=== PATIENT | male | born 1930 | race Caucasian/White ===

== ENCOUNTER → 2017-06-27 | Outpatient (CLI) | payer MEDICARE, OTHER ==
[~2017-06-27] MED LIST: AMIODARONE HCL100 MG PO; ASPIRIN325 MG PO; FLOMAX0.4 MG PO; IMDUR30 MG PO; K-TAB 10MEQ10 MEQ PO; LASIX40 MG PO; LEVOTHROID (SY50 MCG PO; LIPITOR80 MG PO; NORVASC5 MG PO; RANEXA ER500 MG PO
[2017-06-27 13:45] LABS: ALBUMIN 3.6 gm/dL (3.5-5.0); TOTAL BILIRUBIN 0.5 mg/dL (0.0-1.5)
== END ==
LOC: LCNC 13:09
PROVIDERS: Internal Medicine Interventional Cardiology
DX: Z79.899 Other long term (current) drug therapy (principal)

== ENCOUNTER 2017-07-05 15:12 | Observation (INO) | payer MEDICARE, OTHER ==
[~2017-07-05] VITALS: Ht 180.3 cm; Wt 82.7 kg
--- NOTE | ~2017-07-05 | ER ---
PATIENT'S NAME: SAMUEL FOSS [facility] AGE: 86 Y [address] ROOM: [place] [address] LOCATION: GPCU ADMIT DATE: 07/05/2017 ER/Outpatient Report DISCHARGE DATE: FAMILY PHYSICIAN: Carlos Porter MD ATTENDING PHYSICIAN: Carlos Porter Time of Arrival: 1512 hours. Time Seen: 1512 hours. IDENTIFICATION: An 86-year-old male. CHIEF COMPLAINT: Chest pain. HISTORY OF PRESENT ILLNESS: The patient is an 86-year-old male from [place], [place], who woke up and had some left-sided chest pain and shortness of breath. No radiation of the pain. No nausea or vomiting. The stone chimney mason picked him up in [place], said that he was diaphoretic. The patient has a history of coronary artery disease, had bypass surgery in 1988, stents placed in [address] Lomas is his registered radiographer. He denied a recent stress test. I do see that he had a stress test in January 2016 showing a small area of decreased isotope in the anterolateral wall and a small-sized area of decreased isotope in the inferoseptal wall. On arrival here to the emergency room, the patient reports his pain at 5/10 or 6/10, it is better than it was initially. We did give him sublingual nitroglycerin with improvement of his pain, so he was placed on nitroglycerin drip. ALLERGIES: NO KNOWN DRUG ALLERGIES. CURRENT MEDICATIONS: 1. Isosorbide 30 mg 1/2 tablet daily. 2. KCl 10 mEq b.i.d. 3. Furosemide 40 mg daily. 4. Amlodipine 10 mg half a tablet b.i.d. 5. Aspirin 325 mg daily. 6. Amiodarone 200 mg half a tab at noon. 7. Tamsulosin 0.4 mg at h.s. 8. Atorvastatin 80 mg daily. 9. Levothyroxine 50 mcg daily. MEDICAL PROBLEMS: Coronary artery disease; hypertension; history of atrial fibrillation; GI PATIENT'S NAME: PIPO [facility] AGE: 86 Y [address] ROOM: [place] [address] LOCATION: GPCU ADMIT DATE: 07/05/2017 ER/Outpatient Report DISCHARGE DATE: FAMILY PHYSICIAN: Carlos Porter MD ATTENDING PHYSICIAN: Carlos Porter bleed while on chronic anticoagulation, so his Coumadin has been stopped; chronic kidney disease; and hyperlipidemia. PRIOR SURGERY: Colonoscopy, 2009; CABG in 1988; stents 1998, 1999, 2003; hernia repair in 2003 and 1991; carotid endarterectomy in 1998; and cataract surgery, 1997. SOCIAL HISTORY: The patient is retired. Lives alone in [place]. Tobacco use, quit 40+ years ago. Alcohol use, denies. Drug use, denies. FAMILY HISTORY: Father at age 76 of CHF. Mother age 94. One brother at age 54 of heart disease. ALLERGIES: TO CONTRAST DYE. REVIEW OF SYSTEMS: All systems reviewed and negative other than what is noted in the HPI. PHYSICAL EXAMINATION: VITAL SIGNS: 5 feet 11 inches, weight 85.3 kg. Blood pressure 198/93, pulse 84, respirations 18, temperature 97.8, and saturations 96% on room air. GENERAL: An 86-year-old male, in no acute distress. A little bit diaphoretic. HEENT: Unremarkable. LUNGS: Clear to auscultation. HEART: Regular rate and rhythm. No murmur, rub, or gallop. ABDOMEN: Bowel sounds present. Soft, nondistended, nontender. SKIN: Slightly diaphoretic. NEUROLOGIC: The patient is alert and oriented x4. Cranial nerves 2 through 12 grossly intact. Motor strength 5/5 throughout. Sensation is intact to light touch. The patient has some slight bilateral lower extremity edema. No calf tenderness. EMERGENCY ROOM COURSE: Saline lock was initiated. The patient already took 325 mg aspirin at home. He was given nitroglycerin tablet with improvement, so nitroglycerin drip was initiated, but then he became bradycardic, heart rate in the 55 range, so we did discontinue his nitroglycerin drip. EKG sinus rhythm with first-degree AV block. No acute ST elevation or depression at 1520 hours; EKG at 1606 hours, normal sinus rhythm at 54 beats per minute. No acute ST elevation or depression. Sodium 139; potassium 3.9; PATIENT'S NAME: SAMUEL FOSS [facility] AGE: 86 Y [address] ROOM: [address] [place], [place] [address] [facility] ADMIT DATE: 07/05/2017 ER/Outpatient Report DISCHARGE DATE: FAMILY PHYSICIAN: Carlos Porter MD ATTENDING PHYSICIAN: Carlos Porter chloride 107; CO2 of 26; BUN 33; creatinine elevated at 1.9, which is elevated from 1.6 on February 23, 2016. Blood sugar 102. Liver enzymes normal. Magnesium 2.4. CPK 106, CK-MB 2.4, troponin I 0.040. Hemoglobin 14.9, hematocrit 42.3, platelets 179, and white count 6.9 with a normal differential. INR 1. D- dimer elevated at 1.85. ProBNP elevated at 696. One-view chest x-ray, no acute process, pending Radiology over-read. V/Q scan, low probability. Heparin was initiated per acute coronary syndrome protocol and Dr. Huntley was notified for admission and Dr. Gillis was asked to provide consultation. IMPRESSION: 1. Chest pain consistent with unstable angina. 2. Hypertension. 3. Hyperlipidemia. 4. Acute kidney injury. 5. Chronic kidney disease. 6. History of paroxysmal atrial fibrillation, not on anticoagulation. KEYLA IVEY MD CAR/modl /[id number] d: 07/06/176 t: 07/08/17 1500, OUTPATIENT REPORT
--- NOTE | ~2017-07-05 | ESTC ---
Cardiac Perfusion Imaging Demographics Patient Name PIPO Montilla Gender Male Patient Number [id number] Race Visit Number [id number] Ethnicity Corporate ID Room Number G6326 Accession Number [id number] Height 71 inches Date of 1930 Weight 182 pounds Interpreting ANTOINE Venegas Date of study 07/07/2017 Physician Elaine Gillis MD Supervising MD/IGNACIOP Franky LANCASTER Technologist Burton Allen APRN Ordering Physician Elaine Gillis Stress regulatory and compliance technician Stress ECG Reading Franky Bingham Nurse Li Soni Physician TEMITOPE FOX The procedure was explained in detail to the patient. Risks, complications and alternative treatments were reviewed. Written consent was obtained. Medications Reviewed with Patient prior to Procedure. Procedure Procedure Type: Nuclear Stress Test:Pharmacological, Cardiolite Stress Test Procedure Start time: 07/07/2017 08:05 Indications: Chest tightness and Shortness of breath. Risk Factors The patient risk factors include:prior PCI;prior CABG on 10/22/1989;former tobacco use, treated hypercholesterolemia, treated hypertension, family history of premature CAD, dyslipidemia and prior [place] . Conclusions Impression ECG portion of lexiscan stress test is clinically nondiagnostic for ischemia by diagnostic criteria, due to underlying LBBB. Myocardial perfusion imaging is mildly abnormal, there is a mild perfusion defect in the inferior wall slightly worse at peak stress. Overall left ventricular systolic function was normal without regional wall motion abnormalities. Calculated LVEF is 62% and TID ratio is 1.01. Overall there is no significant change compared to prior nuclear stress test in 01/2016. Stress Protocols Resting ECG RSR with LBBB Resting HR:53 bpm Resting BP:144/70 mmHg Pre-stress physical exam: Chest pain with walking and with laying on left side. Stress Protocol:Pharmacologic Peak HR:64 bpm HR response: Appropriate Peak BP:124/60 mmHg BP response: Appropriate Predicted HR: 134 bpm HR/BP product:7936 % of predicted HR: 48 Reason for termination:Infusion complete ECG Findings Indeterminate ECG due to baseline abnormalities. Arrhythmias None Symptoms Shortness of breath. Nausea. Dizziness. Stress Interpretation Appropriate hemodynamic response to Lexiscan. No significant ST-T wave changes with Lexiscan. ECG portion is negative for ischemia by diagnostic criteria. Stress supervision and interpretation provided by Niyah Wilkins APRN . Imaging Results Summed scores - Summed stress score: 12 - Summed rest score: 12 - Summed difference score: 0 Stress ejection Ejection fraction:62 % EDV :148 ml ESV :56 ml Stroke volume :92 ml LV mass :158 gr Imaging Protocols Rest Stress Isotope:Tc99m Sestamibi IV Isotope: Tc99m Sestamibi IV Isotope dose:13.3 mCi Isotope dose:41.4 mCi Date:07/07/2017 06:58 Date:07/07/2017 09:09 Technique: SPECT Technique: Gated Supine SPECT Supine IV remains in place after procedure. Scan Time:45-60 minutes post Scan Time:45-60 minutes post injection injection Procedure Medications - Regadenoson (Lexiscan) 0.4 mg IV over 10-15 sec. I.V. 0.4 mg. Medical History Admission Data Admission date: 07/05/2017 Admission Time: 17:14 Hospital Status: Inpatient. Signatures dtt: ADRIANA GARCIA dtd: 07/07/17 0805 Physician Self Edit
--- NOTE | ~2017-07-05 | HP ---
PATIENT'S NAME: SAMUEL FOSS [facility] AGE: 86 Y [address] ROOM: [address] [place], [place] [address] LOCATION: GPCU ADMIT DATE: 07/05/2017 History & Physical DISCHARGE DATE: FAMILY PHYSICIAN: PHYSICIAN, UNKNOWN ATTENDING PHYSICIAN: Carlos Porter DATE OF SERVICE: CHIEF COMPLAINT: Chest pain. HISTORY OF PRESENT ILLNESS: Samuel is an 86-year-old gentleman who lives in [place], [place]. He woke up this morning, and he got up, and he had some left-sided chest discomfort as well as shortness of breath. Someone came over to check on him and stated that he was pale and diaphoretic. They did call the unit to transport him to [place]. He felt better in the ambulance. He does not think he was given nitroglycerin and does not think he was placed on oxygen. In the emergency room, he was given nitroglycerin x3 and started on a nitroglycerin drip and got a little bradycardic, so that was discontinued. He has a history of coding in 1988. He had a bypass graft at that time. He has had 2 stents placed in 1999 and one in 2003. He most recently had a stress test done by Dr. Eran Lomsa in January 2016. Prior to this, he had been doing fine. PAST MEDICAL HISTORY: Operations include coronary artery bypass graft in 1988, carotid endarterectomy in 1998, cataract surgery in 1997, colonoscopy in 2009, and a hernia repair in 1991 and another one in 2003. Other illnesses include a GI bleed while on Coumadin; coronary artery disease; history of atrial fibrillation; carotid artery disease without stroke; chronic renal failure, stage 3; dermatitis; hyperlipidemia; stasis dermatitis; and prior biceps rupture. CURRENT MEDICATIONS: He is on: 1. Amiodarone 100 mg daily. 2. Amlodipine 5 mg b.i.d. 3. Aspirin 325 mg daily. 4. Atorvastatin 80 mg daily. 5. Lasix 40 mg daily. 6. Isosorbide mononitrate 30 mg 1/2 tablet daily in the morning. 7. Klor-Con 10 mEq b.i.d. 8. Levothyroxine 50 mcg daily. 9. Tamsulosin 0.4 mg daily at bedtime. 10. Triamcinolone acetonide 0.1% cream b.i.d. as needed. PATIENT'S NAME: SAMUEL FOSS [facility] AGE: 86 Y [address] ROOM: [address] [place], [place] [address] [facility] ADMIT DATE: 07/05/2017 History & Physical DISCHARGE DATE: FAMILY PHYSICIAN: PHYSICIAN, UNKNOWN ATTENDING PHYSICIAN: Carlos Porter 11. Multivitamin daily. 12. Os-Zana D daily. ALLERGIES: CONTRAST DYE. NO OTHER ALLERGIES NOTED. FAMILY HISTORY: Father of congestive heart failure at age 76. Mother of starvation at age 94 due to esophageal problems and she could not swallow. One brother at age 54 of heart disease, another brother in his early 60s and a sister at age 80. SOCIAL HISTORY: He has been for the last 3 years. His of Alzheimer's and strokes. He lives independently and takes care of all of his needs. His children bring him food, so he does not do much cooking. He smoked about a pack and a half a day for less than 10 years, quit at age 27. He seldom drinks any alcohol; he used to drink beer years ago. He is retired. His last tetanus shot was in 2016 and last flu shot in 2016. REVIEW OF SYSTEMS: GENERAL: Negative. ENT: Some hearing loss in the left ear. He does have a hearing aid that he does not wear. Wears glasses. CARDIOVASCULAR: See HPI. RESPIRATORY: Negative. GI: Negative. : He does have a slow stream. He is up 1 to 2 times at night to go to the bathroom. MUSCULOSKELETAL: Negative other than some stiffness in his hands. DERM: Negative. PSYCH: Some mild intermittent depression. PHYSICAL EXAMINATION: GENERAL: Samuel is a well-developed, well-nourished, 86-year-old gentleman. He is alert, oriented x3 and gives an excellent history. He does have some records written down, which help him with his memory. VITAL SIGNS: Temperature is 97.8; pulse 84; respirations 18; blood pressure 198/93 initially, it is now 170s/80s; O2 saturation 96% on room air. Height 5 feet 11 inches, weight 85.3 kg. HEENT: Pupils are equal and reactive. Sclerae clear. Extraocular muscles are intact. Oropharynx is unremarkable. NECK: Supple without masses or thyromegaly. HEART: Regular rate and rhythm. No murmurs are auscultated. HEART: Tones are distant. PATIENT'S NAME: SAMUEL FOSS [facility] AGE: 86 Y [address] ROOM: [place] [address] [facility] ADMIT DATE: 07/05/2017 History & Physical DISCHARGE DATE: FAMILY PHYSICIAN: PHYSICIAN, UNKNOWN ATTENDING PHYSICIAN: Carlos Porter LUNGS: Reyes are clear with minimal crackles at the bases. ABDOMEN: Soft. No organomegaly, masses, or tenderness. EXTREMITIES: He has had excellent distal pulses. No significant pitting edema. Some dark coloration to the skin due to stasis dermatitis. LABORATORY DATA: EKG reveals sinus rhythm with first-degree block and nonspecific T-wave findings. Chest x-ray is clear. CBC is normal. Chemistries reveal an elevated BUN and creatinine, creatinine is 1.9. Sodium and potassium are within normal limits. Glucose is minimally elevated. Cardiac enzymes are negative. TSH is therapeutic. D-dimer was elevated at 1.85, but V/Q scan is normal. PT and PTT are normal. Magnesium level 2.4. ProBNP is elevated at 696 with normal being up to 449. ASSESSMENT: 1. Acute coronary syndrome with significant history of coronary artery disease. 2. Hyperlipidemia. 3. Hypertension. 4. History of carotid artery disease. 5. Chronic kidney disease, stage 3. PLAN: He is being admitted on the Acute Coronary Care Pathway, Dr. Lamas has been consulted. Dr. Porter will assume care in the morning and Dr. Lomas when he is available. The plan is to trend his enzymes and perform a stress test tomorrow if those remain negative. Did discuss his code status with him and his family. He states he would be open to cardioversion, but really does not want to be on a ventilator, so if we are able to shock him and get him back within 3 times, he is okay with that. Otherwise, he does not want to be kept alive. We will try to put that clearly in the orders. Prognosis is fair to good. MD VINAYAK CHEUNG/modl /[id number] D: [id number] T: [id number] HISTORY & PHYSICAL
--- NOTE | ~2017-07-05 | CON ---
PATIENT'S NAME: TERRELL FOSS [facility] AGE: 86 Y [address] ROOM: [place] [address] LOCATION: GPCU ADMIT DATE: 07/05/2017 Consultation DISCHARGE DATE: FAMILY PHYSICIAN: PHYSICIAN, UNKNOWN ATTENDING PHYSICIAN: Carlos Porter DATE OF CONSULTATION: 07/05/2017 REASON FOR CONSULTATION: Chest pain. REQUESTING PROVIDER: Maria Antonia Bourne MD CHIEF COMPLAINT: Chest pain. PRIMARY STILL PUMP OPERATOR: Dr. Lomas. HISTORY OF PRESENT ILLNESS: The patient is an 86-year-old male, who has history of coronary artery disease status post CABG x2 and stenting in the past. s/p SVG to LAD and Diag post anterior wall UT in 1987, s/p PTCA to RCA in 2010. He has had a stress test that was done about a year ago in January of 2016 where he had mild perfusion defects. However, due to his chronic medical condition and risk of THELMA, etc., I think medical therapy was recommended and he has been doing well on medical therapy since then. The patient reports he had been in his usual state of health and recently was seen by Dr. Lomas earlier this week. I will try to obtain their records. I do not have access to that right now. The patient reports having chest discomfort earlier today and it is quite severe. He reports chronic stable angina as well as dyspnea on exertion. He reports this is on the left side of his chest and it feels sharp, sometimes it worse with a deep breath. He says it was quite severe and he finally came to the emergency room. He did get nitroglycerin with some relief. During interview, he was completely chest pain free. He has been started on the heparin drip. He did receive a V/Q scan and that was negative for PE. He does have chronic kidney disease stage III. His GFR today is 31. No acute changes on ECG in terms of ischemia or injury. He does have history of atrial fibrillation and has bleeding issues and hence not on chronic oral PATIENT'S NAME: TERRELL FOSS [facility] AGE: 86 Y [address] ROOM: [place] [address] LOCATION: GPCU ADMIT DATE: 07/05/2017 Consultation DISCHARGE DATE: FAMILY PHYSICIAN: PHYSICIAN, UNKNOWN ATTENDING PHYSICIAN: Carlos Porter anticoagulation. He also had CAT scan several years ago with rectal thickening and questionable mass as well as mass in the right upper lobe of his kidney. However, no intervention was done on that given his CKD as well as comorbidities. Since his rectal bleed, the Coumadin was stopped as far as I can tell. Again, I will get the records from Dr. Lomas's office and review them and make changes accordingly. PAST MEDICAL HISTORY: Hypertension, colonic polyps, CABG, SVG to LAD/diag and RCA stenting x2 in , hypertension, paroxysmal atrial fibrillation, rectal bleeding, ckd stage 3, retinal a occlusion, rt side, 1998, and hyperlipidemia. SOCIAL HISTORY: The patient lives locally in town. He smoked for about 15 years and he quit 40 years ago. He smokes one pack per day. No illicit drug abuse or alcohol abuse. REVIEW OF SYSTEMS: All review of systems discussed with the patient. Pertinent positives and negatives mentioned in the HPI. PAST SURGICAL HISTORY: CABG. Rt carotid endarterectomy in 1998 Left herniorhapphy FAMILY HISTORY: No premature coronary artery disease or sudden cardiac . PHYSICAL EXAMINATION: VITAL SIGNS: Blood pressure is 170/80, O2 sats 92%, pulse 56, temperature 98.6, and respirations 16. GENERAL: Alert and oriented. No apparent distress. SKIN: Warm and dry. EYES: No xanthelasma. Sclerae white. Mucous membranes moist. NECK: No JVD. LUNGS: Clear to auscultation bilaterally. HEART: S1 and S2. Regular rate and rhythm. No murmurs, gallops, or rubs. ABDOMEN: Soft bowel sounds positive. EXTREMITIES: No significant lower extremity edema. NEURO: Grossly normal. SKIN: Warm and dry. MUSCULOSKELETAL: Good range of motion. LABORATORY DATA: Sodium 139, potassium 3.9, chloride 107, CO2 of 26, glucose 102, BUN 33, creatinine 1.9, alkaline phosphatase 120, AST 24, ALT 24, and GFR is 31. PATIENT'S NAME: TERRELL FOSS [facility] AGE: 86 Y [address] ROOM: [place] [address] LOCATION: GPCU ADMIT DATE: 07/05/2017 Consultation DISCHARGE DATE: FAMILY PHYSICIAN: PHYSICIAN, UNKNOWN ATTENDING PHYSICIAN: Carlos Porter First set of cardiac enzymes is negative. ProBNP is 696. H and H are 14.9 and 42.3, platelets 179. INR is 1. MEDICATIONS: Please see MAR. EKG, normal sinus rhythm no evidence of ST depressions or elevation. He has normal sinus rhythm with first-degree AV block, intraventricular conduction delay, and mild ST changes in leads 1 and aVL, not significantly different from the ones in the past. V/Q scan negative for PE. Chest x-ray, no acute cardiopulmonary process. IMPRESSION: 1. Unstable angina in patient with coronary artery disease, status post coronary artery bypass graft and stents. We will get records from Dr. Lomas's office. Continue ACS protocol for now. First set of enzymes are negative. No ischemic ECG changes and the patient does not have chest pain. 2. Hypertension, poorly controlled. We will need to optimize his medications. I will give him Norvasc 10 mg now and resume his home medications as well. 3. Hyperlipidemia. LDL goal should be less than 70. We will check fasting lipid profile in the morning. 4. Chronic kidney disease stage III to IV. His GFR is 31 only. He has history of renal mass that is being observed as far as I can tell. 5. History of paroxysmal atrial fibrillation, not on any oral anticoagulation given history of bleeding in the past. He is maintaining NSR on amio 100 mgs daily. PLAN: At this time, the patient is an elderly male with numerous comorbidities and issues. He is at very high risk for complications from cardiac cath and possible intervention. He is chest pain free at this time. We will attempt to optimize his medications. I will add Ranexa 500 b.i.d. I will repeat another stress test tomorrow morning and if it is not significantly worse, we will attempt medical therapy for now. However, if there is significant evidence of ischemia noted on stress testing, then we will discuss with the patient for possible cath or intervention. I am seeing this patient today while I'm bronze plater. We will keep Dr. Lomas posted about patient's admission and the plan. Thank you very much for allowing us to participate in the care of Terrell Foss. PATIENT'S NAME: TERRELL FOSS [facility] AGE: 86 Y [address] ROOM: [place] [id number] [facility] ADMIT DATE: 07/05/2017 Consultation DISCHARGE DATE: FAMILY PHYSICIAN: PHYSICIAN, SAM ATTENDING PHYSICIAN: Carlos Porter ADRIANA MD CARLOS GARCIA/arleenl /[id number] d: 07/06/17 0129 t: 07/06/17 1038, CONSULTATION REPORT
[2017-07-05 15:43] LABS: BASOPHIL % 0.6 %; EOSINOPHIL # 0.1 K/uL (0.0-0.5); EOSINOPHIL % 1.9 %; HEMATOCRIT 42.3 % (33.0-50.0); HEMOGLOBIN 14.9 g/dL (11.0-16.0); IMMATURE GRANULOCYTE % 0.3 %; LYMPHOCYTE # 1.1 K/uL (0.8-4.0); LYMPHOCYTE % 16.3 %; MCH 30.2 pg (27.0-34.0); MCHC 35.2 gm/dL (32.0-36.5); MCV 85.8 fl (83.0-98.0); MONOCYTE # 0.5 K/uL (0.0-1.0); MONOCYTE % 7.8 %; MPV 9.9 fl (9.4-12.4); NEUTROPHIL # (ANC) 5.1 K/uL (1.4-9.0); NEUTROPHIL % 73.1 %; NRBC % 0 /100WBC (0-0.00); PLATELET COUNT 179 K/uL (150-450); RBC 4.93 M/uL (3.50-5.50); RDW-CV 13.7 % (11.9-14.6); WBC 6.9 K/uL (4.0-11.0)
[2017-07-05 15:52] LABS: PROTIME 10.5 SECONDS (9.8-11.4); PTT 26 SECONDS (25-32)
[2017-07-05 16:02] LABS: ALBUMIN 3.7 gm/dL (3.5-5.0); ANION GAP 9.9 (10.0-19.0); CALCIUM 8.5 mg/dL (8.5-10.5); CREATININE 1.9 mg/dL (0.6-1.3); MAGNESIUM 2.4 mg/dL (1.8-2.6); POTASSIUM 3.9 mMol/L (3.7-5.1); TOTAL BILIRUBIN 0.4 mg/dL (0.0-1.5); TOTAL PROTEIN 7.1 g/dL (6.0-8.4)
[2017-07-05 17:39] LABS: BILIRUBIN URINE NEGATIVE (NEGATIVE); BLOOD URINE NEGATIVE /UL (NEGATIVE); COLOR URINE YELLOW (YELLOW); GLUCOSE URINE NEGATIVE (NEGATIVE); KETONE URINE NEGATIVE (NEGATIVE); LEUKOCYTES URINE NEGATIVE /UL (NEGATIVE); NITRITE URINE NEGATIVE (NEGATIVE); PROTEIN URINE NEGATIVE (NEGATIVE); TURBIDITY URINE CLEAR (CLEAR); UROBILINOGEN URINE NORMAL (NORMAL)
[2017-07-05] MEDS ORDERED: K-TAB 10MEQ10 MEQ PO (19:18)
[2017-07-05] MEDS ORDERED: IMDUR30 MG PO (19:18)
[2017-07-05] MEDS ORDERED: LASIX40 MG PO (19:20)
[2017-07-05] MEDS ORDERED: NORVASC5 MG PO (19:21)
[2017-07-05] MEDS ORDERED: ASPIRIN325 MG PO (19:21)
[2017-07-05] MEDS ORDERED: AMIODARONE HCL100 MG PO (19:22)
[2017-07-05] MEDS ORDERED: FLOMAX0.4 MG PO (19:22)
[2017-07-05] MEDS ORDERED: LEVOTHROID (SY50 MCG PO (19:23)
[2017-07-05] MEDS ORDERED: LIPITOR80 MG PO (19:23)
[2017-07-05 19:53] LABS: CPK 91 IU/L (35-332)
[2017-07-06 06:09] LABS: ALBUMIN 3.1 gm/dL (3.5-5.0); ALK PHOS 100 IU/L (33-138); ALT 25 IU/L (12-78); ANION GAP 10.1 (10.0-19.0); AST 17 IU/L (10-40); BLOOD UREA NITROGEN 26 mg/dL (6-24); CALCIUM 8.2 mg/dL (8.5-10.5); CHLORIDE 111 mMol/L (96-110); CO2 25 mMol/L (22-32); CPK 80 IU/L (35-332); CREATININE 1.6 mg/dL (0.6-1.3); POTASSIUM 4.1 mMol/L (3.7-5.1); SODIUM 142 mMol/L (135-145); TOTAL PROTEIN 6.3 g/dL (6.0-8.4)
[2017-07-06 06:10] LABS: TOTAL BILIRUBIN 0.6 mg/dL (0.0-1.5)
[2017-07-06 07:16] LABS: CPK 80 IU/L (35-332)
[2017-07-06 12:46] LABS: CPK 73 IU/L (35-332)
[2017-07-07] MEDS ORDERED: RANEXA ER500 MG PO (15:10)
== END 2017-07-07 16:30 | disposition disaster alternative care site (69) ==
LOC: GMED 15:12 → GPCU 17:14
PROVIDERS: Family Medicine; Internal Medicine Interventional Cardiology; ADMIT Family Medicine
DX: R07.89 Other chest pain (principal); E78.5 Hyperlipidemia, unspecified; L30.8 Other specified dermatitis; I87.2 Venous insufficiency (chronic) (peripheral); I13.10 Hypertensive heart and chronic kidney disease without heart failure, with stage 1 through stage 4 chronic kidney disease, or unspecified chronic kidney disease; I25.110 Atherosclerotic heart disease of native coronary artery with unstable angina pectoris; N18.3 Chronic kidney disease, stage 3 (moderate); Z86.79 Personal history of other diseases of the circulatory system; Z95.1 Presence of aortocoronary bypass graft; Z79.82 Long term (current) use of aspirin; Z79.52 Long term (current) use of systemic steroids; Z79.899 Other long term (current) drug therapy; Z87.891 Personal history of nicotine dependence
CPT/HCPCS: A9500; A9539; A9540; J1644; J2785; J7030